=== PATIENT | female | born 1950 | race Caucasian/White ===

== ENCOUNTER 2019-04-05 17:49 | Emergency (ER) | payer OTHER ==
[~2019-04-05] VITALS: Ht 154.9 cm; Wt 69.9 kg
[2019-04-05 17:52] VITALS: Ht 154.9 cm; Wt 69.9 kg
[2019-04-05] MEDS ORDERED: SOD CHLORIDE 0.9% 1,000 ML IV STA (18:47)
[2019-04-05] MEDS ORDERED: KETOROLAC 15 MG INJ IV STA (18:47)
[2019-04-05] MEDS ORDERED: ONDANSETRON 4 MG INJ IV STA (18:47)
[2019-04-05] MEDS ORDERED: CEPH-443 PO (22:00)
[2019-04-05] MEDS ORDERED: CEFTRIAXONE 1 GM/50 ML (PMX) 50 ML IVPB ONE (22:00)
[2019-04-05] MEDS ORDERED: IBUP-1561 PO (22:00)
[2019-04-05] MEDS ORDERED: ONDA4TAB8 PO (22:00)
--- NOTE | 2019-04-05 22:07 | ERD ---
ER Documentation Chief Complaint Chief Complaint DIZZINESS , GENERALIZED WEAKNESS , BLURRY VISION X 2 DAYS HPI This is a 68-year-old woman, generally healthy, presenting with 2 days of constant headache, dizziness, generalized weakness. She has had some nausea as well but denies vomiting, no chest pain or shortness of breath, no cough, no abdominal pain, no weight loss. ROS All systems reviewed and are negative except as per history of present illness. Medications Home Meds Active Scripts Ondansetron Hcl* (Zofran*) 4 Mg Tablet, 4 MG PO Q8H PRN for NAUSEA AND/OR VOMITING, #30 TAB Prov:JOEY BRANCH MD 04/05/19 Cephalexin* (Keflex*) 500 Mg Capsule, 500 MG PO TID for 7 Days, CAP Prov:JOEY BRANCH MD 04/05/19 Ibuprofen* (Motrin*) 400 Mg Tab, 400 MG PO Q8 PRN for PAIN AND/OR INFLAMMATION, #30 TAB Prov:JOEY BRANCH MD 04/05/19 Allergies Allergies: Coded Allergies: No Known Allergy (Unverified , 04/05/19) PMhx/Soc Medical and Surgical Hx: pt denies Surgical Hx Hx Cardiac Disorders: Yes (HTN) Hx Alcohol Use: No Hx Substance Use: No Hx Tobacco Use: No Smoking Status: Never smoker FmHx Family History: No diabetes Physical Exam Vitals Vital Signs Date Temp Pulse Resp B/P (MAP) Pulse Ox O2 O2 Flow FiO2 Time Delivery Rate 04/05/19 59 20 141/71 99 Room Air 19:24 (94) 04/05/19 97.4 72 16 181/77 98 17:52 (111) Physical Exam GENERAL: Well-developed, well-nourished, well-hydrated, appears anxious, afebrile HEENT: Moist mucous membranes, pink conjunctiva, no cervical spine tenderness or step-off deformities, no goiter, no jaundice or icterus, extraocular movements intact without pain. No submandibular induration, and no pharyngeal erythema NEURO: Alert and oriented 3, cranial nerves II through XII intact bilaterally, pupils equal round reactive to light, no focal deficits or facial asymmetry, sensation intact distally Strength 5/5 in upper and lower extremities bilaterally CARDIAC: Regular rate and rhythm, no murmurs rubs or gallops LUNGS: Clear bilaterally no wheezing crackles or stridor ABDOMEN: Soft nontender, no guarding, no rigidity, no rebound, no psoas sign no obturator sign. Normoactive bowel sounds SKIN: Warm and dry to touch, no abrasions, contusions, or hematomas, no lacerations, no ecchymosis, no target lesions, and without ulcers EXTREMITIES: No clubbing cyanosis or edema, calves are bilaterally symmetrical, no Homans sign, no popliteal cord sign. Distal pulses equal and bilateral PSYCH: Anxious Result Diagram: 04/05/19 1847 04/05/19 1835 Results 24 hrs Laboratory Tests Test 04/05/19 18:24 04/05/19 18:35 04/05/19 18:47 Urine Color STRAW Urine Clarity CLEAR Urine pH 6.0 Urine Specific [place] 1.014 Urine Ketones NEGATIVE mg/dL Urine Nitrite NEGATIVE mg/dL Urine Bilirubin NEGATIVE mg/dL Urine Urobilinogen NEGATIVE mg/dL Urine Leukocyte Esterase 1+ Amber/ul Urine Microscopic RBC 1 /HPF Urine Microscopic WBC 19 /HPF Urine Hemoglobin NEGATIVE mg/dL Urine Glucose 1+ mg/dL Urine Total Protein NEGATIVE mg/dl Sodium Level 141 mmol/L Potassium Level 3.6 mmol/L Chloride Level 105 mmol/L Carbon Dioxide Level 25 mmol/L Anion Gap 11 Blood Urea Nitrogen 12 mg/dl Creatinine 0.42 mg/dl Est Glomerular Filtrat > 60 mL/min Rate mL/min Glucose Level 129 mg/dl Calcium Level 9.0 mg/dl Total Bilirubin 0.4 mg/dl Direct Bilirubin 0.00 mg/dl Indirect Bilirubin 0.4 mg/dl Aspartate Amino 38 IU/L Transf (AST/SGOT) Alanine 41 IU/L Aminotransferase (ALT/SGPT) Alkaline Phosphatase 144 IU/L Total Protein 8.3 g/dl Albumin 4.7 g/dl Globulin 3.60 g/dl Albumin/Globulin Ratio 1.30 Lipase 100 U/L White Blood Count 5.4 10^3/ul Red Blood Count 4.53 10^6/ul Hemoglobin 13.4 g/dl Hematocrit 40.0 % Mean Corpuscular Volume 88.3 fl Mean Corpuscular Hemoglobin 29.6 pg Mean Corpuscular 33.5 g/dl Hemoglobin Concent Red Cell Distribution Width 12.0 % Platelet Count 217 10^3/UL Mean Platelet Volume 8.8 fl Immature Granulocytes % 0.200 % Neutrophils % 44.9 % Lymphocytes % 41.9 % Monocytes % 10.5 % Eosinophils % 1.9 % Basophils % 0.6 % Nucleated Red Blood Cells % 0.0 /100WBC Immature Granulocytes # 0.010 10^3/ul Neutrophils # 2.4 10^3/ul Lymphocytes # 2.2 10^3/ul Monocytes # 0.6 10^3/ul Eosinophils # 0.1 10^3/ul Basophils # 0.0 10^3/ul Nucleated Red Blood Cells # 0.0 10^3/ul Current Medications Medications Dose Sig/Beverly Start Time Status Last (Trade) Ordered Route PRN Stop Time Admin Dose Reason Admin Sodium 1,000 ml @ Q1H STAT 04/05/19 DC 04/05/19 Chloride 1,000 mls/hr IV 18:47 18:58 04/05/19 19:46 Ondansetron 4 mg ONCE STAT 04/05/19 DC 04/05/19 HCl (Zofran IV 18:47 18:58 Inj) 04/05/19 18:48 Ketorolac 15 mg ONCE STAT 04/05/19 DC 04/05/19 Tromethamine IV 18:47 18:58 (Toradol) 04/05/19 18:48 Ceftriaxone 50 ml @ ONCE ONCE 04/05/19 Sodium 100 mls/hr IVPB 22:00 04/05/19 22:29 Procedures/MDM IV line was established patient was placed on manager cardiac cath rhythm strip revealed a sinus rhythm at about 80 bpm with upright P and T waves. Patient was afebrile I administered 1 L normal saline IV, Toradol 15 mg IV, Zofran 4 mg IV for her symptoms CT scan of the brain was negative for acute bleed mass or shift. CBC and electrolytes were normal, liver function tests normal, urinalysis positive for infection. Patient symptoms completely resolved and she feels much better, her blood pressure is within normal limits at this time. I treated her here with ceftriaxone 1 g IV. Differential diagnoses considered, included but not limited to acute coronary syndrome, pulmonary embolism, aortic dissection, abdominal aortic aneurysm, sepsis, stroke, meningitis, encephalitis, pneumonia, appendicitis, cholecystitis, bowel obstruction, pyelonephritis, nephrolithiasis, cystitis, as well as metabolic, hematologic, and electrolyte abnormalities. As well as abscess, cellulitis, fractures, and dislocations. Patient feels much better at this time, and vital signs are normal, symptoms have improved. I did give strict instructions to return to the ED if symptoms continue or worsen, patient will otherwise follow-up with primary care physician. Patient understood instructions and agreed to plan. Disclaimer: Inadvertent spelling and grammatical errors are likely due to EHR/dictation software use and do not reflect on the overall quality of patient care. Also, please note that the electronic time recorded on this note does not necessarily reflect the actual time of the patient encounter. Departure Diagnosis: Primary Impression: Acute UTI Additional Impression: Dizziness Condition: Good Patient Instructions: Dizziness, Unk Cause, Bladder Infection, Female (Adult) JOEY BRANCH MD April 05, 2019 22:07
[2019-04-05 22:55] VITALS: BP 120/64; PULSE 58; RESP 16
== END 2019-04-05 22:57 | disposition home or self-care (01) ==
LOC: E/R 17:49
DX: N39.0 Urinary tract infection, site not specified (principal); I10 Essential (primary) hypertension
CPT/HCPCS: 36415; 70450; 80053; 81001; 83690; 85025; 96374; 96375; 99285; J0696; J1885; J2405; J7030